=== PATIENT | female | born 1985 | race Caucasian/White ===

== ENCOUNTER 2019-07-01 14:34 | Outpatient (CLI) | payer MEDICAID | END 2019-07-01 14:35 | disposition critical access hospital (66) | LOC: EMS 14:34 | PROVIDERS: ATTEND Surgery | DX: R06.2 Wheezing (principal); R05 Cough | CPT/HCPCS: A0425; A0427; A0999 ==

== ENCOUNTER 2019-07-01 15:00 | Emergency (ER) | payer MEDICAID ==
[2019-07-01] MEDS ORDERED: ALBUTEROL NEB 2.5 MG/3 ML INH STA (15:04)
--- NOTE | 2019-07-01 15:07 | ED Physician Documentation ---
History of Present Illness - Stated complaint Stated Complaint: COUGH/ ASTHMA - History obtained from History obtained from: Patient, EMS - History of Present Illness Timing: Other (33-year-old woman with history of asthma. She is been admitted many times in the past, and has had ICU stays but never intubated. Her asthma has not been bad for the last few years, she takes Flovent twice daily and only rarely needs her rescue inhaler. She had a cold 2 weeks ago with a cough with white sputum. No fevers or body aches though. This is ramped her asthma up and she is had increased nebulizer and rescue inhaler use. Brought in by ambulance today, received a DuoNeb and Solu-Medrol, 125Milligrams prior to arrival with some improvement.) Review of Systems Ten Systems: 10 systems reviewed and negative Constitutional: denies: Fever, Chills Nose: reports: Rhinorrhea / runny nose Throat: denies: Sore throat Cardiac: denies: Chest pain / pressure, Palpitations Respiratory: reports: Dyspnea, Cough, Wheezing. denies: Hemoptysis GI: denies: Abdominal Pain PD PAST MEDICAL HISTORY - Past Medical History Past Medical History: Yes Respiratory: Asthma - Present Medications Home Medications: Ambulatory Orders Medication Instructions Recorded Confirmed Albuterol 2 puffs PRN PRN 07/01/19 07/01/19 Albuterol 2.5 mg INH Q4H PRN #30 neb 07/01/19 Fluticasone 44 Mcg [Flovent] 2 puffs BID 07/01/19 07/01/19 Ipratropium/Albuterol [Duoneb] 3 ml INH Q6H PRN #1 unit 07/01/19 predniSONE [Deltasone] 20 mg PO [id number] #21 tab 07/01/19 - Allergies Allergies/Adverse Reactions: Allergies Allergy/AdvReac Type Severity Reaction Status Date / Time No Known Drug Allergies Allergy Verified 07/01/19 15:08 - Living Situation Living Situation: reports: With spouse/s.o. - Social History Smoking Status: Former smoker Does the pt drink ETOH?: No Substance Use and Type: Marijuana - Family History Family history: reports: Non contributory PD ED PE NORMAL - Vitals Vital signs reviewed: Yes - General General: Alert and oriented X 3, No acute distress (Somewhat breathless but speaking in full sentences) - HEENT HEENT: PERRL, EOMI - Neck Neck: Supple, no meningeal sign, No bony TTP - Cardiac Cardiac: RRR, No murmur - Respiratory Respiratory: Other (Symmetric Expiratory wheezing at the bases, good air motion) - Abdomen Abdomen: Soft, Non tender - Back Back: No CVA TTP, No spinal TTP - Derm Derm: Normal color, Warm and dry - Extremities Extremities: No edema, No calf tenderness / cord - Neuro Neuro: Alert and oriented X 3, Normal speech - Psych Psych: Normal mood, Normal affect Results - Vitals Vitals: Vital Signs - 24 hr 07/01/19 07/01/19 07/01/19 15:01 15:26 16:14 Temperature 36.6 C Heart Rate 98 106 H 105 H Respiratory 26 H 18 22 Rate Blood Pressure 130/80 136/79 H O2 Saturation 99 96 07/01/19 16:38 Temperature Heart Rate 119 H Respiratory 20 Rate Blood Pressure 117/71 O2 Saturation 96 Oxygen O2 Source Room air - Labs Labs: Laboratory Tests 07/01/19 07/01/19 07/01/19 15:20 15:20 15:20 WBC 6.4 RBC 4.62 Hgb 13.2 Hct 39.1 MCV 84.6 MCH 28.6 MCHC 33.8 RDW 12.8 Plt Count 252 MPV 9.6 Neut # (Auto) 5.1 Lymph # (Auto) 0.8 L [place] # (Auto) 0.4 Eos # (Auto) 0.1 Baso # (Auto) 0.0 Absolute Nucleated RBC 0.00 Nucleated RBC % 0.0 VBG pH 7.482 H VBG pCO2 27.9 L VBG pO2 35.0 VBG HCO3 20.4 L VBG Total CO2 21.3 L VBG O2 Saturation 74.6 VBG Base Excess -1.7 Sodium 141 Potassium 2.6 L Chloride 107 Carbon Dioxide 21 Anion Gap 13.0 BUN 10 Creatinine 0.7 Estimated GFR (MDRD) 96 Glucose 110 H Calcium 8.9 - Rads (name of study) 1v chest Radiology: EMP read contemporaneously (clear) PD MEDICAL DECISION MAKING - ED course ED course: 33-year-old woman presents with asthma exacerbation, viral cause. Chest x-ray is clear. After nebs in the department her lungs were completely clear and nonlabored. Note made of the hypokalemia, this is spurious from the beta agonists. Departure - Departure Disposition: 01 Home, Self Care Clinical Impression: Asthma Qualifiers: Asthma severity: moderate Asthma persistence: persistent Asthma complication type: with acute exacerbation Qualified Code(s): J45.41 - Moderate persistent asthma with (acute) exacerbation Condition: Good Record reviewed to determine appropriate education?: Yes Instructions: Asthma Dc Prescriptions: Albuterol 2.5 mg INH Q4H PRN #30 neb PRN Reason: Wheezing Ipratropium/Albuterol [Duoneb] 3 ml INH Q6H PRN #1 unit PRN Reason: Dyspnea predniSONE [Deltasone] 20 mg PO [id number] #21 tab Comments: Call your doctor to arrange a follow-up appointment, make the next available appointment. In the interim, return anytime if worse or if new symptoms develop. Discharge Date/Time: 07/01/19 16:39
[2019-07-01 15:29] LABS: BASOPHILS % (AUTO) 0.5 %; EOSINOPHILS # (AUTO) 0.1 10^3/uL (0.0-0.7); EOSINOPHILS % (AUTO) 2.2 %; HGB - HEMOGLOBIN 13.2 g/dL (12.0-16.0); LYMPHOCYTES # (AUTO) 0.8 10^3/uL (1.5-3.5); LYMPHOCYTES % (AUTO) 11.9 %; MEAN CORPUSCULAR HEMOGLOBIN 28.6 pg (27.0-31.0); MEAN CORPUSCULAR HGB CONC 33.8 g/dL (32.0-36.0); MEAN CORPUSCULAR VOLUME 84.6 fL (81.0-99.0); MEAN PLATELET VOLUME 9.6 fL (7.9-10.8); MONOCYTES # (AUTO) 0.4 10^3/uL (0.0-1.0); MONOCYTES % (AUTO) 5.9 %; NEUTROPHILS # (AUTO) 5.1 10^3/uL (1.5-6.6); PLT - PLATELET COUNT 252 10^3/uL (130-450); RED BLOOD COUNT 4.62 10^6/uL (4.20-5.40); RED CELL DISTRIBUTION WIDTH 12.8 % (12.0-15.0); WHITE BLOOD COUNT 6.4 x10^3/uL (4.8-10.8)
[2019-07-01 15:32] LABS: VBG BASE EXCESS -1.7 mmol/L (-2 - +2); VBG PCO2 27.9 mmHg (41-51); VBG PH 7.482 (7.31-7.41); VBG TOTAL CO2 21.3 mmol/L (24-29)
--- NOTE | 2019-07-01 15:36 | XRAY Report ---
Reason: dyspnea Procedure Date: 07/01/2019 Accession Number: [id number] / [id number] Procedure: XR - Chest 1 View X-Ray CPT Code: 33519 FULL RESULT: EXAM: CHEST RADIOGRAPHY EXAM DATE: 07/01/2019 03:18 PM. CLINICAL HISTORY: Dyspnea. COMPARISON: None. TECHNIQUE: 1 view. FINDINGS: Lungs/Pleura: No focal opacities evident. No pleural effusion. No pneumothorax. Mediastinum: Within exam limitations, the cardiomediastinal contour is normal. Other: None. IMPRESSION: No acute intrathoracic plain film abnormality. [facility]
[2019-07-01 15:38] LABS: CALCIUM 8.9 mg/dL (8.5-10.3); CREATININE 0.7 mg/dL (0.4-1.0)
[2019-07-01 16:39] VITALS: BP 117/71
== END 2019-07-01 16:39 | disposition home or self-care (01) ==
LOC: EDBD → ED 15:00
DX: J45.41 Moderate persistent asthma with (acute) exacerbation (principal); Z87.891 Personal history of nicotine dependence
CPT/HCPCS: 36415; 71045; 80048; 82803; 85025; 94640; 99283; 99284